=== PATIENT | male | born 1970 | race African-American/Black ===

== ENCOUNTER 2023-04-06 23:48 | Observation (INO) | payer BC ==
[2023-04-07] MEDS ORDERED: Thiamine 100 MG TAB ONE (01:18)
[2023-04-07] MEDS ORDERED: Folic Acid 1 MG TAB ONE (01:18)
[2023-04-07] MEDS ORDERED: Acetaminophen 325 MG TAB PO PRN (01:29)
[2023-04-07] MEDS ORDERED: hydrALAZINE 20 MG/ML VIAL SLOW IVP PRN (01:29)
[2023-04-07] MEDS ORDERED: Acetaminophen 650 MG Suppository PR PRN (01:29)
[2023-04-07] MEDS ORDERED: Ondansetron ODT 4 MG TAB PO PRN (01:29)
[2023-04-07] MEDS ORDERED: Ondansetron PF 4 MG/2 ML Vial IVP PRN (01:29)
[2023-04-07 05:17] LABS: #Monocytes 0.4 thou/uL (0.11-0.59); #Neutrophils 2.5 thou/uL (1.40-6.50); %Basophils 0.4 % (0.0-1.0); %Eosinophils 0.8 % (0.0-10.0); %Lymphocytes 38.7 % (21.0-51.0); %Monocytes 8.7 % (0.0-10.0); %Neutrophils 51.2 % (42.0-75.0); Hematocrit 54.1 % (42.0-52.0); Hemoglobin 18.4 g/dL (14.0-18.0); Mean Corpuscular Hemoglobin 32.1 pg (27.0-31.0); Mean Corpuscular Volume 94.4 fl (78.0-98.0); Mean Platelet Volume 9.4 fL (7.4-10.4); Platelet Count 219 10x3/uL (130-400); RBC Distribution Width 13.3 % (11.5-14.5); Red Blood Cell (RBC) Count 5.73 mill/uL (4.70-6.10); White Blood Cell (WBC) Count 4.9 10x3/uL (4.8-10.8)
[2023-04-07 05:45] LABS: Anion Gap 15 mmol/L (10-20); BUN (Urea Nitrogen) 5 mg/dL (8.9-20.6); Calc. Creatinine Clearance 108 mL/min (70-130); Calcium 8.8 mg/dL (7.8-10.44); Carbon Dioxide 20 mmol/L (22-29); Cardiac Risk 3.4 (Less than 4.5); Chloride 105 mmol/L (98-107); Cholesterol 189 mg/dl (< 200 Desired); Estimated GFR 106; Glucose 101 mg/dL (70-105); HDL Cholesterol 56 mg/dL (>60 Neg Risk); LDL Cholesterol, Calculated 97 mg/dL; Potassium 4.5 mmol/L (3.5-5.1); Sodium 135 mmol/L (136-145); Triglycerides 181 mg/dL (Less than 150)
[2023-04-07 07:18] LABS: Hemoglobin A1c 6.3 % (4.0-6.0)
[2023-04-07] MEDS ORDERED: Aspirin 81 mg Enteric Coated Tablet ONE (08:01)
[2023-04-07] MEDS: Aspirin 81 mg Enteric Coated Tablet PO SCH (08:05)
[2023-04-07] MEDS ORDERED: Sodium Chloride 0.9% 1,000 ML IV SCH (11:00)
[2023-04-07 15:01] VITALS: BMI 29.2
[2023-04-07] MEDS ORDERED: Amlodipine 10 MG TAB PO SCH (21:00)
[2023-04-08 08:02] VITALS: BP 131/81; TEMP 98.3
[2023-04-08] MEDS: Aspirin 81 mg Enteric Coated Tablet PO SCH (08:50)
== END 2023-04-08 11:05 | disposition home or self-care (01) ==
LOC: ERS 23:48 → ERHOLD 04-07 01:26 → 2SE 04-07 11:01
PROVIDERS: ADMIT Student in an Organized Health Care Education/Training Program; ATTEND Internal Medicine
PROC: B24BZZZ Ultrasonography of Heart with Aorta (ICD-10-PCS; principal; 2023-04-08)
DX: R53.1 Weakness (principal); F10.929 Alcohol use, unspecified with intoxication, unspecified; I10 Essential (primary) hypertension; Z79.82 Long term (current) use of aspirin; Z79.899 Other long term (current) drug therapy
CPT/HCPCS: 36415; 70551; 80048; 80061; 83036; 85025; 93306; G0378; J7050